=== PATIENT | female | born 1990 | race Caucasian/White ===

== ENCOUNTER 2018-07-12 21:56 | Emergency (ER) | payer SELFPAY ==
[2018-07-12 22:04] VITALS: BP 147/90; PULSE 84; TEMP 98.2; BMI 31.7
--- NOTE | 2018-07-12 22:12 | PDOC ---
History of Present Illness - General Chief Complaint: Hematuria Stated Complaint: BLOOD IN URINE Time Seen by Provider: 07/12/18 22:01 History Source: Patient Exam Limitations: No Limitations - History of Present Illness Initial Comments: 07/12/18 22:53 This is a 28-year-old female who comes in complaining of burning urinary frequency and dysuria. Patient's also complaining of some lower abdominal pain in the area of her bladder. Patient has history significant for a positive test approximately 6 weeks and is scheduled for a elective in 4 days. Patient denies any fevers, chills, nausea, vomiting, diarrhea. Patient denies any back pain or flank pain. Patient denies any hematuria PAST MEDICAL HISTORY: no significant history PAST SURGICAL HISTORY: no significant history FAMILY HISTORY: no pertinant history SOCIAL HISTORY: Pt lives with family and is employed. MEDICATIONS: reviewed ALLERGIES: As per nursing notes ROS General: No fevers or chills, no weakness, no weight loss HEENT: No change in vision. No sore throat,. No ear pain CardioVascular: No chest pain or shortness of breath Respiratory:No cough, or wheezing. Gastrointestinal: no nausea, vomiting, diarrhea or constipation, No rectal bleeding Genitourinary: History positive for dysuria, frequency and discomfort in the area of her bladder, also hematuria Musculoskeletal: . No joint pain or swelling Neurologic: No headache, vertigo, dizziness or loss of consciousness Psychiatric: nor depression Skin: No rashes or easy bruising Endocrine: no increased thirst or abnormal weight change Allergic: no skin or latex allergy All other systems reviewed and normal GENERAL: The patient is awake, alert, and fully oriented, in no acute distress. HEAD: Normal with no signs of trauma. EARS: Bilateral ears are normal with normal external canal. and tympanic membranes. EYES: Pupils equal, round and reactive to light, extraocular movements intact, sclera anicteric, conjunctiva clear. BACK there is no CVA tenderness or flank tenderness ABDOMEN: There is some mild tenderness on palpation in the suprapubic/bladder area. There is no adnexal tenderness EXTREMITIES: Normal range of motion, no edema. NEUROLOGICAL: Normal speech, normal gait. grossly intact PSYCH: Normal mood, normal affect. SKIN: Warm, Dry, normal turgor, no rashes or lesions noted. Patient's urinalysis was positive for leukocytes and red blood cells. Patient was started on Pyridium and Macrodantin a first dose was given here in the emergency room and prescriptions were sent to her pharmacy patient discharged home Past History - Past Medical History Allergies/Adverse Reactions: Allergies Allergy/AdvReac Type Severity Reaction Status Date / Time No Known Allergies Allergy Unverified 07/12/18 21:59 Home Medications: Ambulatory Orders Nitrofurantoin Monohyd/M-Cryst [Macrobid -] 100 mg PO BID #14 capsule 07/12/18 Phenazopyridine HCl [Pyridium] 200 mg PO TID #6 tablet 07/12/18 *DC/Admit/Observation/Transfer Diagnosis at time of Disposition: Cystitis - Discharge Dispostion Disposition: HOME Condition at time of disposition: Good Decision to Admit order: No - Prescriptions Prescriptions: Nitrofurantoin Monohyd/M-Cryst [Macrobid -] 100 mg PO BID #14 capsule Phenazopyridine HCl [Pyridium] 200 mg PO TID #6 tablet - Referrals - Patient Instructions Additional Instructions: Your urine shows that you have a urinary tract infection. Take Pyridium one tablet 3 times a day for the discomfort burning and frequency. Take the antibiotic Macrobid twice a day for 7 days for the infection. Return to the emergency department immediately with ANY new, persistent or worsening symptoms. Continue any medications as previously prescribed by your physician. You should follow up with your primary doctor as soon as possible regarding today's emergency department visit. . Please make sure your doctor reviews the results of your emergency evaluation. Thank you for coming to the Emergency Department today for your care. It was a pleasure to see you today. Please note that your evaluation is INCOMPLETE until you follow-up with your doctor. - Post Discharge Activity
[2018-07-12 22:26] LABS: URINE APPEARANCE Slightly; URINE BILIRUBIN Negative (NEGATIVE); URINE COLOR Yellow; URINE GLUCOSE (UA) Negative (NEGATIVE); URINE KETONE Trace (NEGATIVE); URINE LEUK ESTERASE TRACE (NEGATIVE); URINE NITRITE Negative (NEGATIVE); URINE PROTEIN Negative (NEGATIVE); URINE UROBILINOGEN 0.2 (0.2-1.0)
[2018-07-12] MEDS ORDERED: NITROFURANTOIN MACROCRYSTAL 50 MG CAPSULE (FP) PO SCH (22:45)
[2018-07-12 22:47] LABS: AMORP URATES 1+ /hpf (NONE SEEN); EPI CELLS 1+ /HPF; URINE BACTERIA 1+ /hpf (NEGATIVE)
[2018-07-12] MEDS ORDERED: PHENAZOPYRIDINE HCL 100 MG TABLET (FP) PO ONE (22:50)
[2018-07-12] MEDS ORDERED: NITROFURANTOIN MACROCRYSTAL 50 MG CAPSULE (FP) ONE (22:52)
[2018-07-12] MEDS ORDERED: PHENAZOPYRIDINE HCL 100 MG TABLET (FP) ONE (22:52)
== END 2018-07-12 22:59 | disposition home or self-care (01) ==
LOC: FER 21:56
DX: O26.891 Other specified pregnancy related conditions, first trimester (principal); N30.90 Cystitis, unspecified without hematuria; Z3A.01 Less than 8 weeks gestation of pregnancy
CPT/HCPCS: 81003; 81015; 84703; 99282-25

== ENCOUNTER 2018-12-16 15:06 | Emergency (ER) | payer OTHER ==
[2018-12-16 15:14] VITALS: TEMP 97.6; BMI 28.3
--- NOTE | 2018-12-16 16:11 | PDOC ---
History of Present Illness - General History Source: Patient Exam Limitations: No Limitations - History of Present Illness Initial Comments: 12/16/18 16:28 The patient is a 28 year old female, , 19 weeks , with no significant past medical history of who presents to the emergency department with complaint of palpitations, dizziness, and lightheadedness about 5 minutes after drinking a frappuccino today. She states she was standing outside with a coworker when the symptoms began and the coworker reportedly got her car to bring the patient to the ED for evaluation. The patient denies any particular stressors in her day to make her upset or agitated. As per the coworker at bedside, the patient appeared pale in route. The patient reports a mild headache now. The patient denies abdominal cramping, vaginal bleeding. The patient denies any complications with this or her last 9 years ago. The patient denies chest pain, shortness of breath, headache.The patient denies fever, chills, nausea, vomit, diarrhea and constipation. The patient denies dysuria, frequency, urgency and hematuria. Allergies: NKDA Social history: denies tobacco and ETOH <Romi Nur - Last Filed: 12/16/18 16:28> <Felton Novoa - Last Filed: 12/16/18 16:48> - General Chief Complaint: Lightheaded Stated Complaint: 19 weeks ,dizzy and weak. Time Seen by Provider: 12/16/18 16:04 Past History <Romi Nur - Last Filed: 12/16/18 16:28> - Past Medical History COPD: No Other medical history: pt denies - Suicide/Smoking/Psychosocial Hx Smoking History: Never smoked Have you smoked in the past 12 months: No Number of Cigarettes Smoked Daily: 0 Hx Alcohol Use: No Drug/Substance Use Hx: No Substance Use Type: None <Felton Novoa - Last Filed: 12/16/18 16:48> - Past Medical History Allergies/Adverse Reactions: Allergies Allergy/AdvReac Type Severity Reaction Status Date / Time No Known Allergies Allergy Verified 12/16/18 15:08 Home Medications: Ambulatory Orders NK [No Known Home Medication] 12/16/18 Review of Systems - Review of Systems Able to Perform ROS?: Yes Comments:: 12/16/18 16:28 CONSTITUTIONAL: Absent: fever, chills, diaphoresis, generalized weakness, malaise, loss of appetite HEENT: Absent: rhinorrhea, nasal congestion, throat pain, throat swelling, difficulty swallowing, mouth swelling, ear pain, eye pain, visual Changes CARDIOVASCULAR: (+) palpitations, lightheadedness, Absent: chest pain, syncope, irregular heart rate, peripheral edema RESPIRATORY: Absent: cough, shortness of breath, dyspnea with exertion, orthopnea, wheezing, stridor, hemoptysis GASTROINTESTINAL: Absent: abdominal pain, abdominal distension, nausea, vomiting, diarrhea, constipation, melena, hematochezia GENITOURINARY: Absent: dysuria, frequency, urgency, hesitancy, hematuria, flank pain, genital pain MUSCULOSKELETAL: Absent: myalgia, arthralgia, joint swelling SKIN: Absent: rash, itching, pallor HEMATOLOGIC/IMMUNOLOGIC: Absent: easy bleeding, easy bruising, lymphadenopathy, frequent infections ENDOCRINE: Absent: unexplained weight gain, unexplained weight loss, heat intolerance, cold intolerance NEUROLOGIC: (+) dizziness, Absent: headache, focal weakness or paresthesia, unsteady gait, seizure, mental status changes, bladder or bowel incontinence PSYCHIATRIC: Absent: anxiety, depression, suicidal or homicidal ideation, hallucinations <Romi Nur - Last Filed: 12/16/18 16:28> *Physical Exam - Vital Signs Last Vital Signs Temp Pulse Resp BP Pulse Ox 97.6 F 71 18 110/63 100 12/16/18 15:07 12/16/18 16:21 12/16/18 16:21 12/16/18 16:21 12/16/18 16:21 - Physical Exam Comments: 12/16/18 16:29 GENERAL: Well developed, well nourished. Awake and alert. No acute distress. HEENT: Normocephalic, atraumatic. PERRLA, EOMI. No conjunctival pallor. Sclera are non- icteric. Moist mucous membranes. Oropharynx is clear. NECK: Supple. Full ROM. No JVD. Carotid pulses 2+ and symmetric, without bruits. No thyromegaly. No lymphadenopathy. CARDIOVASCULAR: Regular rate and rhythm. No murmurs, rubs, or gallops. Distal pulses are 2+ and symmetric. PULMONARY: No evidence of respiratory distress. Lungs clear to auscultation bilaterally. No wheezing, rales or rhonchi. ABDOMINAL: (+) Gravid uterus approximately 20weeks. Soft. Non-tender. Non-distended. No rebound or guarding. No organomegaly. Normoactive bowel sounds. MUSCULOSKELETAL Normal range of motion at all joints. No bony deformities or tenderness. No CVA tenderness. EXTREMITIES: No cyanosis. No clubbing. No edema. No calf tenderness. SKIN: Warm and dry. Normal capillary refill. No rashes. No jaundice. NEUROLOGICAL: Alert, awake, appropriate. Cranial nerves 2-12 intact. No motor deficits in the upper extremities and lower extremities. Normoreflexic in the upper and lower extremities. Normal speech. Gait is normal without ataxia. PSYCHIATRIC: Cooperative. Good eye contact. Appropriate mood and affect. <Romi Nur - Last Filed: 12/16/18 16:28> - Vital Signs Last Vital Signs Temp Pulse Resp BP Pulse Ox 97.6 F 84 18 103/53 L 100 12/16/18 15:07 12/16/18 15:07 12/16/18 15:07 12/16/18 15:07 12/16/18 15:07 <Felton Novoa - Last Filed: 12/16/18 16:48> Medical Decision Making - Medical Decision Making 12/16/18 16:46 EKG: NSR, Normal PE nl except 18 wk uterus, N/T. No pelvic cramping or pain, no vag d/c or bleeding <Felton Novoa - Last Filed: 12/16/18 16:48> *DC/Admit/Observation/Transfer - Attestations Scribe Attestion: 12/16/18 16:29 Documentation prepared by Romi Nur, acting as medical associate for Felton Aponte MD <Romi Nur - Last Filed: 12/16/18 16:28> - Discharge Dispostion Decision to Admit order: No <Felton Novoa - Last Filed: 12/16/18 16:48> Diagnosis at time of Disposition: Vasovagal near syncope - Discharge Dispostion Disposition: HOME Condition at time of disposition: Improved - Patient Instructions Printed Discharge Instructions: DI for Syncope in Adults (Fainting) Additional Instructions: Avoid caffeine, alcohol,and tobacco. Arise slowly from lying and sitting to allow your blood pressure
[2018-12-16 16:22] VITALS: BP 110/63; PULSE 71
--- NOTE | 2018-12-17 11:49 | EKG ---
Test Reason : Blood Pressure : / mmHG Vent. Rate : 076 BPM Atrial Rate : 076 BPM P-R Int : 174 ms QRS Dur : 084 ms QT Int : 372 ms P-R-T Axes : 009 070 033 degrees QTc Int : 418 ms NORMAL SINUS RHYTHM NORMAL ECG NO PREVIOUS ECGS AVAILABLE Confirmed by JEWEL TORRES MD ([id number]) on 12/17/2018 11:49:30 AM Referred By: MD FOSTER Confirmed By:JEWEL TORRES MD
== END 2018-12-16 16:23 | disposition home or self-care (01) ==
LOC: FER 15:06
DX: R55 Syncope and collapse (principal); O26.892 Other specified pregnancy related conditions, second trimester; Z3A.19 19 weeks gestation of pregnancy
CPT/HCPCS: 93005; 99282-25

== ENCOUNTER 2022-05-22 17:45 | Emergency (ER) | payer OTHER ==
[2022-05-22 18:25] VITALS: BP 122/57; PULSE 89; RESP 18; TEMP 98.1; BMI 34.0
[2022-05-22 20:12] LABS: BASO % 0.2 % (0-2.0); EOS % 1.1 % (0-4.5); HEMATOCRIT 33.5 % (32.4-45.2); HEMOGLOBIN 10.9 GM/dL (10.7-15.3); LYMPH % 23.7 % (8-40); MCH 22.3 pg (25.7-33.7); MCHC 32.6 g/dl (32.0-36.0); MEAN CELL VOLUME 68.6 fl (80-96); MEAN PLT VOLUME 8.6 fl (7.5-11.1); MONO % 9.9 % (3.8-10.2); NEUT % 65.1 % (42.8-82.8); PLATELET COUNT 234 10^3/uL (134-434); RBC 4.89 M/mm3 (3.60-5.2); WHITE BLOOD COUNT 7.1 K/mm3 (4.0-10.0)
[2022-05-22 20:13] LABS: HCG,QUALITATIVE URINE Positive
[2022-05-22 20:16] LABS: EPI CELLS 22 /uL (0-25.1); HYALINE CASTS 1 /uL (0-3.1); PH,URINE 6.5 (5.0-8.0); URINE APPEARANCE CLEAR; URINE BACTERIA 690 /uL (0-1359); URINE BILIRUBIN NEGATIVE (NEGATIVE); URINE COLOR YELLOW; URINE GLUCOSE (UA) NEGATIVE (NEGATIVE); URINE KETONE NEGATIVE (NEGATIVE); URINE LEUK ESTERASE NEGATIVE (NEGATIVE); URINE NITRITE NEGATIVE (NEGATIVE); URINE PROTEIN NEGATIVE (NEGATIVE); URINE RBC 12 /uL (0-23.9); URINE WBC 9 /uL (0-25.8)
[2022-05-22 20:19] LABS: ADD RBC MORPHOLOGY YES
[2022-05-22 20:40] LABS: CALCIUM 8.6 mg/dL (8.5-10.1)
[2022-05-22 20:41] LABS: ALBUMIN 3.6 g/dl (3.4-5.0)
[2022-05-22 20:44] LABS: CREATININE 0.4 mg/dL (0.55-1.3)
[2022-05-22 20:46] LABS: BILIRUBIN,TOTAL 0.4 mg/dL (0.2-1); TOT PROT 7.1 g/dl (6.4-8.2)
[2022-05-22 20:55] LABS: ANISOCYTOSIS 3+; MACROCYTOSIS 0; OVALOCYTE 1+; TARGET CELLS 1+; TEAR DROP CELLS 1+
== END 2022-05-22 22:24 | disposition home or self-care (01) ==
LOC: JER 17:45
DX: O20.8 Other hemorrhage in early pregnancy (principal); Z3A.01 Less than 8 weeks gestation of pregnancy
CPT/HCPCS: 36415; 76817-TC; 80053; 81003; 84702; 84703; 85025; 86850; 86900; 86901; 87086; 99284-25